=== PATIENT | male | born 1960 | race Caucasian/White ===

== ENCOUNTER 2025-06-15 12:20 | Day surgery (SDC) | payer OTHER ==
[~2025-06-15] VITALS: Ht 182.9 cm; Wt 78.4 kg
[2025-06-15] MEDS ORDERED: ZOLP10 (12:39)
[2025-06-15] MEDS ORDERED: SUCR1 (12:39)
--- NOTE | 2025-06-15 15:31 | NUR ---
06/15/25 1531 Sharon Yolanda PT CALLED [facility] AFTER DISCHARGE STATING THAT HE WENT TO THE PHARMACY TO [facility] THE RX THAT WAS DR LANDERS WAS SENDING IN BUT THAT [facility] ADVISED HIM THEY DID NOT HAVE A RX FOR HIM. THIS RN SPOKE TO DR LANDERS AND DR LANDERS ADVISED THAT HE HAD TO LEAVE THE RX ON [employer] MESSAGE MACHINE BECAUSE THEY DID NOT ANSWER WHEN HE CALLED IT IN. RX IS FOR OMEPRAZOLE 40MG BID FOR 1 YEAR. THIS RN CALLED [facility] AND SPOKE TO "[email or web address]". SHE STATED THAT SHE JUST OBTAINED THE MESSAGE OFF THEIR RECORDING AND WAS ACTIVELY WORKING TO GET THE OMEPRAZOLE READY FOR THE PATIENT. SHE STATED THAT IT SHOULD BE READY FOR PATIENT TO [facility] AROUND 5:00PM. THIS RN NOTIFIED DR LANDERS OF ABOVE THEN CALLED AND SPOKE TO PATIENT TO LET HIM KNOW THAT [facility] HAS THE PRESCRIPTION AND HE SHOULD BE ABLE TO [facility] AROUND 5:00PM THIS EVENING. PT VERBALIZED UNDERSTANDING. HE STATED HE MAY HAVE TO PICK IT UP TOMORROW HE IS NOT SURE IF HE WILL BE IN TOWN UNTIL 5PM.
== END 2025-06-15 15:00 | disposition home or self-care (01) ==
LOC: ORSCSDS 12:20
PROVIDERS: Internal Medicine Gastroenterology
PROC: 0DBN8ZX Excision of Sigmoid Colon, Via Natural or Artificial Opening Endoscopic, Diagnostic (ICD-10-PCS; principal; 2025-06-15 13:45)
PROC: 0DB68ZX Excision of Stomach, Via Natural or Artificial Opening Endoscopic, Diagnostic (ICD-10-PCS; principal; 2025-06-15 13:45)
PROC: 0DBK8ZX Excision of Ascending Colon, Via Natural or Artificial Opening Endoscopic, Diagnostic (ICD-10-PCS; principal; 2025-06-15 13:45)
PROC: 0DB48ZX Excision of Esophagogastric Junction, Via Natural or Artificial Opening Endoscopic, Diagnostic (ICD-10-PCS; principal; 2025-06-15 13:45)
DX: R10.13 Epigastric pain (principal); K21.00 Gastro-esophageal reflux disease with esophagitis, without bleeding; R19.7 Diarrhea, unspecified; D12.2 Benign neoplasm of ascending colon; D12.5 Benign neoplasm of sigmoid colon; K57.30 Diverticulosis of large intestine without perforation or abscess without bleeding; R63.4 Abnormal weight loss; I10 Essential (primary) hypertension; Z87.891 Personal history of nicotine dependence
CPT/HCPCS: 88305; 88342; J2704; J7120